=== PATIENT | female | born 2000 | race Two or more races ===

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

== ENCOUNTER 2023-12-28 16:15 | Emergency (ER) | payer MEDICAID ==
[~2023-12-28] VITALS: Ht 165.1 cm; Wt 109.0 kg
[2023-12-28 18:00] LABS: Basophils # (auto) 0 10 ^3/uL (0-0.2); Eosinophils # (auto) 0 10 ^3/uL (0-0.8); Eosinophils % (auto) 0.3 % (0.0-7.0); White Blood Cell 13.3 10^3/uL (4.4-10.8)
[2023-12-28 18:02] LABS: Basophils % (auto) 0.4 % (0.0-2.0); Hematocrit 41.3 % (36.0-46.0); Hemoglobin 13.2 g/dL (12.2-16.2); Lymphocytes # (auto) 3.3 10 ^3/uL (0.4-5.4); Lymphocytes % (auto) 24.8 % (10.0-50.0); Mean Corpuscular Hemoglobin 25.6 pg (28.0-32.0); Mean Corpuscular Volume 80.1 fL (80.0-100.0); Monocytes # (auto) 0.8 10 ^3/uL (0-1.3); Monocytes % (auto) 6.3 % (0.0-12.0); Neutrophils # (auto) 9.1 10 ^3/uL (1.6-8.6); Neutrophils % (auto) 68.2 % (37.0-80.0); Platelet Count (auto) 287 10^3/uL (140-450); Red Blood Cells 5.15 10^6/uL (4.0-5.20)
[2023-12-28 18:14] LABS: Albumin 3.8 g/dL (3.2-4.8); Alkaline Phosphatase 61 U/L (46-116); Anion Gap 4 (5-15); Aspartate Aminotransferase 8 U/L (13-40); Bilirubin, Total 0.2 mg/dL (0.2-1.0); Blood Urea Nitrogen 12 mg/dL (9-23); Calcium 8.8 mg/dL (8.7-10.4); Carbon Dioxide 26 mmol/L (20-30); Chloride 110 mmol/L (98-107); Glucose 106 mg/dL (74-106); Potassium 4.2 mmol/L (3.5-5.1); Sodium 140 mmol/L (136-145); Total Protein 5.8 g/dL (5.7-8.2)
[2023-12-28 18:23] LABS: Alanine Aminotransferase < 9 U/L (7-40)
[2023-12-28 19:32] VITALS: BP 108/66; PULSE 80; RESP 18; TEMP 97.8; O2SAT 98
[2023-12-28] MEDS: SODIUM CHLORIDE 0.9% 1,000 ML IV ONE (19:32)
== END 2023-12-28 21:12 | disposition left against medical advice (07) ==
LOC: ER 16:15
DX: R55 Syncope and collapse (principal); R10.2 Pelvic and perineal pain; R06.02 Shortness of breath
CPT/HCPCS: 36415; 80053; 84484; 84702; 85025